=== PATIENT | male | born 1980 | race African-American/Black ===

== ENCOUNTER 2020-11-24 12:55 | Emergency (ER) | payer SELFPAY ==
[~2020-11-24] VITALS: Ht 170.2 cm; Wt 72.6 kg
--- NOTE | 2020-11-24 13:29 | Emergency Room Report ---
History of Present Illness General Chief Complaint: Abdominal Pain Source: Patient Present Illness HPI 40-year-old male presents to the emergency department with acute onset 10 out of 10 severity severe abdominal pain with nausea and vomiting since 7 AM this morning. Patient denies blood in the vomitus. He denies constipation or diarrhea. Patient denies blood in the stool or black tarry stool. Patient den ies having ill contacts with similar symptoms. He denies fevers or chills. Patient reports generalized abdominal pain and tenderness and reports most severe in the epigastric region. Patient denies EtOH or drug use. He denies dizziness, syncope, chest pain, shortness of breath or headaches. Patient denies having any similar episodes in the past. No other aggravating or reliev ing factors. Allergies: Coded Allergies: No Known Allergies (Unverified , 11/24/20) COVID-19 Screening Contact w/high risk pt: No Experienced COVID-19 symptoms?: No COVID-19 Testing performed COLLAR TACKER: No Patient History Past Medical History: see triage record Past Surgical History: none Pertinent Family History: none Reviewed Nursing Documentation: PMH: Agreed; PSxH: Agreed Nursing Documentation-PMH Past Medical History: No Stated History Review of Systems All Other Systems: negative except mentioned in HPI Physical Exam Vital Signs Date Time Temp Pulse Resp B/P (MAP) Pulse Ox O2 Delivery O2 Flow Rate FiO2 11/24/20 13:11 97.9 86 20 122/68 (86) 97 Room Air Sp02 EP Interpretation: reviewed, normal General Appearance: no apparent distress, alert, GCS 15, non-toxic Head: normocephalic, atraumatic Eyes: bilateral eye normal inspection, bilateral eye PERRL ENT: hearing grossly normal, normal voice Neck: full range of motion Respiratory: chest non-tender, lungs clear, normal breath sounds, no wheezing, speaking full sentences Cardiovascular #1: regular rate, rhythm Gastrointestinal: normal bowel sounds, non tender, soft, non-distended, no guarding Genitourinary: normal inspection Musculoskeletal: back normal, normal range of motion, gait/station normal, non- tender Neurologic: alert, motor strength/tone normal, oriented x3, sensory intact, responsive, speech normal Psychiatric: judgement/insight normal Skin: no rash, normal color, warm/dry Medical Decision Making PA Attestation Dr. Randall Is my supervising Physician whom patient management has been discussed with. Diagnostic Impression: Primary Impression: Cannabinoid hyperemesis syndrome Additional Impression: Vomiting Qualified Codes: R11.2 - Nausea with vomiting, unspecified ER Course 40-year-old male presents to the emergency department with acute onset 10 out of 10 severity severe abdominal pain with nausea and vomiting since 7 AM this morning. Patient denies blood in the vomitus. He denies constipation or diarrhea. Patient denies blood in the stool or black tarry stool. Patient denies having ill contacts with similar symptoms. He denies fevers or chills. Patient reports generalized abdominal pain and tenderness and reports most severe in the epigastric region. Patient denies EtOH or drug use. He denies dizziness, syncope, chest pain, shortness of breath or headaches. Patient denies having any similar episodes in the past. No other aggravating or relieving factors. Ddx considered but are not limited to GE, colitis, acute appendicitis, SBO, Cyclical Vomiting secondary to THC, COVID-19 Vital signs: Within normal limits, pt. is afebrile, H&PE are most consistent with GE most likely viral in etiology, no evidence to suggest acute abdomen on physical exam. Patient does not appear to be significantly dehydrated. Patient is nontoxic in appearance and resting comfortably until disturbed by questioning. ORDERS: -CBC: Mild leukocytosis of 12.8--suspect due to active vomiting/stress reaction. -CMP: Within normal limits -Lipase: Within normal limits - UDS: Positive for THC ED INTERVENTIONS: -Reglan 10mg IV -Pepcid 20mg PO -Capsaicin cream After above interventions this patient successfully completed oral fluid challenge without nausea or vomiting. DISCHARGE: At this time pt. is stable for d/c to home. Will provide printed patient care instructions, and any necessary prescriptions. Care plan and follow up instructions have been discussed with the patient prior to discharge. Labs Test 11/24/20 14:00 11/24/20 15:47 White Blood Count 12.8 K/UL (4.8-10.8) Red Blood Count 4.31 M/UL (4.70-6.10) Hemoglobin 13.7 G/DL (14.2-18.0) Hematocrit 43.0 % (42.0-52.0) Mean Corpuscular Volume 100 FL (80-99) Mean Corpuscular Hemoglobin 31.8 PG (27.0-31.0) Mean Corpuscular Hemoglobin Concent 31.9 G/DL (32.0-36.0) Red Cell Distribution Width 12.0 % (11.6-14.8) Platelet Count 217 K/UL (150-450) Mean Platelet Volume 8.0 FL (6.5-10.1) Neutrophils (%) (Auto) % (45.0-75.0) Lymphocytes (%) (Auto) % (20.0-45.0) Monocytes (%) (Auto) % (1.0-10.0) Eosinophils (%) (Auto) % (0.0-3.0) Basophils (%) (Auto) % (0.0-2.0) Differential Total Cells Counted 100 Neutrophils % (Manual) 92 % (45-75) Lymphocytes % (Manual) 5 % (20-45) Monocytes % (Manual) 3 % (1-10) Eosinophils % (Manual) 0 % (0-3) Basophils % (Manual) 0 % (0-2) Band Neutrophils 0 % (0-8) Platelet Estimate Adequate Platelet Morphology Normal Red Blood Cell Morphology Normal Sodium Level 141 MMOL/L (136-145) Potassium Level 4.1 MMOL/L (3.5-5.1) Chloride Level 106 MMOL/L (98-107) Carbon Dioxide Level 26 MMOL/L (21-32) Anion Gap 9 mmol/L (5-15) Blood Urea Nitrogen 15 mg/dL (7-18) Creatinine 0.7 MG/DL (0.55-1.30) Estimat Glomerular Filtration Rate > 60 mL/min (>60) Glucose Level 123 MG/DL (74-106) Calcium Level 9.1 MG/DL (8.5-10.1) Total Bilirubin 1.7 MG/DL (0.2-1.0) Direct Bilirubin 0.3 MG/DL (0.0-0.3) Aspartate Amino Transf (AST/SGOT) 30 U/L (15-37) Alanine Aminotransferase (ALT/SGPT) 38 U/L (12-78) Alkaline Phosphatase 78 U/L (46-116) Total Protein 7.9 G/DL (6.4-8.2) Albumin 4.1 G/DL (3.4-5.0) Globulin 3.8 g/dL Albumin/Globulin Ratio 1.1 (1.0-2.7) Lipase 136 U/L (73-393) Urine Opiates Screen Negative (NEGATIVE) Urine Barbiturates Screen Negative (NEGATIVE) Phencyclidine (PCP) Screen Negative (NEGATIVE) Urine Amphetamines Screen Negative (NEGATIVE) Urine Benzodiazepines Screen Negative (NEGATIVE) Urine Cocaine Screen Negative (NEGATIVE) Urine Marijuana (THC) Screen Positive (NEGATIVE) Last Vital Signs Date Time Temp Pulse Resp B/P (MAP) Pulse Ox O2 Delivery O2 Flow Rate FiO2 11/24/20 13:11 97.9 86 20 122/68 (86) 97 Room Air Status: improved Disposition: HOME, SELF-CARE Condition: Stable Scripts Capsaicin (CAPSAICIN) 42.5 Gm Cream..g. 1 APPLIC TP TID for vomiting, #42.5 GM Prov: Andreia Orellana 11/24/20 Famotidine* (Pepcid 20mg tablet*) 20 Mg Tablet 20 MG ORAL TWICE A DAY for Gerd for 7 Days, #14 TAB 0 Refills Prov: Andreia Orellana 11/24/20 Referrals: [facility] Patient Instructions: Nausea and Vomiting, Adult, Qous-to-Vlzl Additional Instructions: Take medications as directed. Follow up with a Primary Care Provider in 3-5 days, even if your symptoms have resolved. --Please review list of primary care clinics, if you do not already have a primary care provider Return sooner to ED if new symptoms occur, or current symptoms become worse. - Please note that this Emergency Department Report was dictated using [employer] technology software, occasionally this can lead to erroneous entry secondary to interpretation by the dictation equipment. Andreia Orellana Nov 24, 2020 13:29
--- NOTE | 2020-11-24 13:35 | NUR ---
ED Nurse Note: Pt ambulated to ED from home d/t abdominal pain accompanied with nausea/vomiting started 5 hours ago. Pt is AOx4, calm and cooperative to care, pt denies diarrhea.
[2020-11-24 13:36] VITALS: BP 122/68
[2020-11-24] MEDS ORDERED: Metoclopramide 10mg/2ml Inj IVP ONE (13:45)
[2020-11-24] MEDS: DiphenhydrAMINE 50mg/ml Inj IVP ONE ×2 (14:00→14:46)
[2020-11-24 14:24] LABS: HEMOGLOBIN 13.7 G/DL (14.2-18.0); MEAN CORPUSCULAR VOLUME 100 FL (80-99); PLATELET COUNT 217 K/UL (150-450); RED BLOOD COUNT 4.31 M/UL (4.70-6.10); WHITE BLOOD COUNT 12.8 K/UL (4.8-10.8)
[2020-11-24 14:33] LABS: ANION GAP 9 mmol/L (5-15); BLOOD UREA NITROGEN 15 mg/dL (7-18); CALCIUM 9.1 MG/DL (8.5-10.1); CARBON DIOXIDE 26 MMOL/L (21-32); CHLORIDE 106 MMOL/L (98-107); CREATININE 0.7 MG/DL (0.55-1.30); POTASSIUM 4.1 MMOL/L (3.5-5.1); SODIUM 141 MMOL/L (136-145)
[2020-11-24 14:45] LABS: ALANINE AMINOTRANSFERASE 38 U/L (12-78); ALBUMIN 4.1 G/DL (3.4-5.0); ALBUMIN/GLOBULIN RATIO 1.1 (1.0-2.7); ALKALINE PHOSPHATASE 78 U/L (46-116); ASPARTATE AMINO TRANSFERASE 30 U/L (15-37); BILIRUBIN,TOTAL 1.7 MG/DL (0.2-1.0)
[2020-11-24 14:57] LABS: BILIRUBIN,DIRECT 0.3 MG/DL (0.0-0.3)
[2020-11-24] MEDS ORDERED: Lidocaine 2% Visc 15ml soln ORAL ONE (15:15)
--- NOTE | 2020-11-24 15:41 | NUR ---
ED Nurse Note: Per ERMD, benadryl will be discontinue. [facility]
[2020-11-24] MEDS ORDERED: Capsaicin 0.075% Cream TOPIC ONE (15:45)
[2020-11-24 16:14] LABS: BILIRUBIN, URINE NEGATIVE (NEGATIVE); GLUCOSE, URINE (UA) NEGATIVE (NEGATIVE); KETONES,URINE 1+ (NEGATIVE); LEUKOCYTE ESTERASE ,URINE 1+ (NEGATIVE); NITRITE,URINE NEGATIVE (NEGATIVE); PH,URINE 9 (4.5-8.0); PROTEIN,URINE 2+ (NEGATIVE); UROBILINOGEN,URINE 4 MG/DL (0.0-1.0)
[2020-11-24] MEDS ORDERED: FAMOTIDINE20 MG ORAL (16:32)
[2020-11-24] MEDS ORDERED: CAPSAICIN42.5 GM TP (16:32)
[2020-11-24 16:34] LABS: COLOR,URINE YELLOW
[2020-11-24 16:35] LABS: APPEARANCE,URINE SLIGHTLY CLOUDY
[2020-11-24 16:45] VITALS: BP 126/70
--- NOTE | 2020-11-24 16:45 | NUR ---
ER DISCHARGE NOTE: Patient is cleared to be discharged per ERPA, pt is aox4, on room air, with stable vital signs. pt was given dc and prescription instructions, pt was able to verbalize understanding, pt id band and iv site removed without complications. pt is able to ambulate with steady gait. pt took all belongings.
== END 2020-11-24 16:45 | disposition home or self-care (01) ==
LOC: EMR 14:25
DX: R11.2 Nausea with vomiting, unspecified (principal); F12.120 Cannabis abuse with intoxication, uncomplicated
CPT/HCPCS: 36415; 80053; 80307; 81003; 82248; 83690; 85007; 85025; 96374; 96375; 99284; J2765; S0028